=== PATIENT | female | born 1985 | race African-American/Black ===

== ENCOUNTER 2020-01-17 10:37 | Inpatient (IN) | payer MEDICARE, OTHER ==
[~2020-01-17] VITALS: Ht 162.6 cm; Wt 67.6 kg
[~2020-01-17 10:37] MED LIST: ACET-3161 PO; BENADRYL PO; FOLI0.4T2 PO; HYDR-4005 PO; HYDR-519 PO
[2020-01-17] MEDS ORDERED: ONDANSETRON HCL 4MG/2ML INJ IV STA ×2 (11:08→12:26)
[2020-01-17] MEDS ORDERED: MORPHINE SULFATE 4 MG/ML CPJ (NOT FOR IM USE) IV STA ×2 (11:08→12:26)
[2020-01-17] MEDS ORDERED: SODIUM CHLORIDE 0.9% 1,000 ML IV ONE (11:15)
[2020-01-17 12:00] LABS: HEMATOCRIT. 23.5 % (36.0-48.0); HEMOGLOBIN. 8.4 g/dL (12.0-16.0); MEAN CORPUSCULAR VOLUME 122.8 fL (81.0-99.0); MEAN PLATELET VOLUME 7.9 fl (7.4-10.4); PLATELET 338 x1000/uL (130-400); RED BLOOD CELL COUNT 1.92 mill/uL (4.2-5.4); RED CELL DISTRIBUTION WIDTH 22.6 % (11.6-14.6)
[2020-01-17 12:07] LABS: CHLORIDE 102 mEq/L (98-107)
[2020-01-17 12:18] LABS: HCG SCREEN NEGATIVE
[2020-01-17 12:27] LABS: NUCLEATED RED BLOOD CELLS 10 /100 WBC; PLATELET ESTIMATE NORMAL
[2020-01-17] MEDS ORDERED: VANCOMYCIN 1 G PREMIX 200 ML IV ONE (12:45)
[2020-01-17] MEDS ORDERED: HYDROMORPHONE HCL/PF 2MG/ML CPJ IV ONE (12:45)
[2020-01-17] MEDS ORDERED: PIPERACILLIN/TAZ 3.375G PREMIX 50 ML IV ONE (12:45)
[2020-01-17] MEDS ORDERED: CLONIDINE 0.1MG TABLET PO PRN (13:00)
[2020-01-17] MEDS ORDERED: ACETAMINOPHEN 325MG TABLET PO PRN (13:00)
[2020-01-17] MEDS ORDERED: ONDANSETRON HCL 4MG/2ML INJ IV PRN (13:00)
[2020-01-17] MEDS ORDERED: ENOXAPARIN 40MG/0.4ML SYR SUBCUT SCH ×2 (13:00→14:00)
[2020-01-17] MEDS ORDERED: DOCUSATE SODIUM 100MG CAPSULE PO PRN (13:00)
[2020-01-17] MEDS ORDERED: MAGNESIUM/ALUMINUM HYDROXIDE/SIMETHICONE 30ML UDC PO PRN (13:00)
[2020-01-17] MEDS ORDERED: NITROGLYCERIN 0.4MG TABLET SL SL PRN (13:00)
[2020-01-17] MEDS ORDERED: GUAIFENESIN 200MG/10ML SUGAR FREE UDC PO PRN (13:00)
[2020-01-17 13:05] LABS: TOTAL IRON BINDING CAPACITY 367 ug/dL (250-450)
[2020-01-17 13:06] LABS: HAPTOGLOBIN <31.0 mg/dL (30-200); LDL CHOLESTEROL 62 mg/dL (5-100)
[2020-01-17 13:07] LABS: CREATINE KINASE 64 IU/L (26-192)
[2020-01-17 13:08] LABS: HDL CHOLESTEROL 37 mg/dL (40-59)
[2020-01-17 13:10] LABS: CREATINE KINASE MB FRACTION < 1.0 ng/mL (0.5-3.6)
[2020-01-17] MEDS ORDERED: ENOXAPARIN 60MG/0.6ML SYR SUBCUT ONE (13:30)
[2020-01-17] MEDS ORDERED: CEFTRIAXONE 1 G PREMIX 50 ML IV SCH (14:00)
[2020-01-17] MEDS ORDERED: AZITHROMYCIN 500 MG in DEXT 5% WATER 250 ML IV SCH (14:00)
[2020-01-17] MEDS ORDERED: MVI, ADULT NO.1 10 ML, FOLIC ACID 1 MG, THIAMINE HCL 100 MG in SODIUM CHLORIDE 0.9% 1,0... IV NR ×4 (14:00)
[2020-01-17 14:11] LABS: FOLIC ACID (FOLATE) SERUM > 20.00 ng/mL (>5.38)
[2020-01-17 14:18] LABS: VITAMIN B12 SERUM 571 pg/mL (211-911)
[2020-01-17] MEDS ORDERED: DIPHENHYDRAMINE 50MG/ML VIAL IV ONE (15:00)
[2020-01-17] MEDS ORDERED: ALBUTEROL 6.7GM HFA INHALER ORI PRN (16:15)
[2020-01-17] MEDS ORDERED: DOCU-138 MT (16:20)
[2020-01-17] MEDS: KETOROLAC 15MG/ML VIAL IV PRN ×2 (16:32→22:44)
[2020-01-17 17:03] VITALS: BP 115/56
[2020-01-17] MEDS: CEFTRIAXONE 1,000 MG in DEXTROSE 5% WATER 50 ML IV SCH (18:39)
[2020-01-17] MEDS: MORPHINE SULFATE 2 MG/ML CPJ (NOT FOR IM USE) IV PRN (19:59)
[2020-01-17 20:00] VITALS: BP 133/94
[2020-01-17] MEDS: ASCORBIC ACID 500 MG TABLET PO SCH (20:58)
[2020-01-17] MEDS: FAMOTIDINE 20MG TABLET PO SCH (20:58)
[2020-01-17] MEDS: ACETAMINOPHEN 325MG TABLET PO PRN (20:59)
[2020-01-17] MEDS: ZOLPIDEM TARTRATE 5MG TABLET PO PRN (20:59)
[2020-01-17] MEDS: METOPROLOL TARTRATE 25MG TABLET PO SCH (21:06)
[2020-01-17] MEDS: TRAMADOL 50MG TABLET PO PRN (21:44)
[2020-01-17] MEDS: SODIUM CHLORIDE 0.9% 1,000 ML IV SCH (22:06)
[2020-01-17] MEDS: LORAZEPAM 0.5MG TABLET PO PRN (22:44)
[2020-01-18] VITALS: BP 118/72
[2020-01-18] MEDS: MORPHINE SULFATE 2 MG/ML CPJ (NOT FOR IM USE) IV PRN ×4 (00:01→21:00)
[2020-01-18] MEDS: LORAZEPAM 0.5MG TABLET PO PRN ×3 (02:55→22:46)
[2020-01-18] MEDS: ACETAMINOPHEN 325MG TABLET PO PRN (02:55)
[2020-01-18 04:00] VITALS: BP 114/72
[2020-01-18 06:03] LABS: CHLORIDE 105 mEq/L (98-107)
[2020-01-18 06:13] LABS: PHOSPHORUS 3.7 mg/dL (2.5-4.9)
[2020-01-18 06:48] LABS: BASOPHILS % 0.9 % (0.0-2.0); EOSINOPHILS % 0.9 % (0.0-5.0); HEMATOCRIT. 23.6 % (36.0-48.0); HEMOGLOBIN. 8.3 g/dL (12.0-16.0); LYMPHOCYTES % 27.9 % (20.0-50.0); MEAN CORPUSCULAR HEMOGLOBIN 44.2 pg (28.0-32.0); MEAN PLATELET VOLUME 7.9 fl (7.4-10.4); MONOCYTES % 8.3 % (2.0-8.0); PLATELET 330 x1000/uL (130-400); RED BLOOD CELL COUNT 1.89 mill/uL (4.2-5.4)
[2020-01-18 08:00] VITALS: BP 99/56
[2020-01-18] MEDS: METOPROLOL TARTRATE 25MG TABLET PO SCH ×2 (09:00→21:00)
[2020-01-18] MEDS: ENOXAPARIN 40MG/0.4ML SYR SUBCUT SCH ×2 (09:00→09:04)
[2020-01-18] MEDS: ASCORBIC ACID 500 MG TABLET PO SCH ×2 (09:03→20:40)
[2020-01-18] MEDS: FOLIC ACID 1MG TABLET PO SCH (09:03)
[2020-01-18] MEDS: FAMOTIDINE 20MG TABLET PO SCH ×2 (09:03→20:40)
[2020-01-18] MEDS: ZINC SULFATE 220 MG ( 50 ) CAPSULE PO SCH (09:03)
[2020-01-18] MEDS: SODIUM CHLORIDE 0.9% 1,000 ML IV SCH ×2 (09:14→20:40)
[2020-01-18] MEDS: KETOROLAC 15MG/ML VIAL IV PRN ×2 (09:14→18:37)
[2020-01-18] MEDS: TRAMADOL 50MG TABLET PO PRN ×2 (13:37→22:51)
[2020-01-18] MEDS: AZITHROMYCIN 500 MG in DEXT 5% WATER 250 ML IV SCH (13:38)
[2020-01-18] MEDS: CEFTRIAXONE 1,000 MG in DEXTROSE 5% WATER 50 ML IV SCH (17:38)
[2020-01-18 20:00] VITALS: BP 104/59
[2020-01-18] MEDS: ZOLPIDEM TARTRATE 5MG TABLET PO PRN (20:40)
[2020-01-19] VITALS (7 sets, daily range): BP systolic 98–139; BP diastolic 54–88
[2020-01-19] MEDS: KETOROLAC 15MG/ML VIAL IV PRN ×2 (00:50→12:26)
[2020-01-19] MEDS: MORPHINE SULFATE 2 MG/ML CPJ (NOT FOR IM USE) IV PRN (02:47)
[2020-01-19] MEDS: SODIUM CHLORIDE 0.9% 1,000 ML IV SCH ×5 (06:18→21:05)
[2020-01-19] MEDS: TRAMADOL 50MG TABLET PO PRN (06:19)
[2020-01-19 06:57] LABS: CHLORIDE 107 mEq/L (98-107)
[2020-01-19 07:28] LABS: PHOSPHORUS 3.1 mg/dL (2.5-4.9)
[2020-01-19 07:36] LABS: BASOPHILS % 2.6 % (0.0-2.0); EOSINOPHILS % 0.4 % (0.0-5.0); LYMPHOCYTES % 25.6 % (20.0-50.0); MEAN CORPUSCULAR HEMOGLOBIN 43.4 pg (28.0-32.0); MEAN CORPUSCULAR VOLUME 120.6 fL (81.0-99.0); MEAN PLATELET VOLUME 7.9 fl (7.4-10.4); MONOCYTES % 6.7 % (2.0-8.0); NEUTROPHILS % 64.7 % (40.0-76.0); PLATELET 274 x1000/uL (130-400); RED BLOOD CELL COUNT 1.54 mill/uL (4.2-5.4); RED CELL DISTRIBUTION WIDTH 18.9 % (11.6-14.6)
[2020-01-19 07:47] LABS: HEMATOCRIT. 18.6 % (36.0-48.0); HEMOGLOBIN. 6.7 g/dL (12.0-16.0)
[2020-01-19] MEDS: ENOXAPARIN 40MG/0.4ML SYR SUBCUT SCH (08:12)
[2020-01-19] MEDS: ASCORBIC ACID 500 MG TABLET PO SCH ×2 (08:49→20:48)
[2020-01-19] MEDS: FAMOTIDINE 20MG TABLET PO SCH ×2 (08:49→20:48)
[2020-01-19] MEDS: ZINC SULFATE 220 MG ( 50 ) CAPSULE PO SCH (08:49)
[2020-01-19] MEDS: METOPROLOL TARTRATE 25MG TABLET PO SCH ×2 (08:49→20:48)
[2020-01-19] MEDS: FOLIC ACID 1MG TABLET PO SCH (08:49)
[2020-01-19] MEDS: AZITHROMYCIN 500 MG in DEXT 5% WATER 250 ML IV SCH (15:02)
[2020-01-19 15:40] LABS: BG BASE EXCESS -7.6 mmol/L (-2.0-2.0); BG CARBOXYHEMOGLOBIN 0.9 % (0.5-1.5); BG DEOXYHEMOGLOBIN 67.6 % (0.0-5.0); BG HCO3 ACT 19.5 mmol/L (22.0-26.0); BG METHEMOGLOBIN 0.7 % (0.0-1.5); BG OXYGEN SATURATION 31.3 % (92.0-98.5); BG OXYHEMOGLOBIN 30.8 % (94.0-97.0); BG PCO2 48.1 mmHg (35.0-45.0); BG PH 7.225 (7.350-7.450); BG PO2 < 30.3 mmHg (75.0-100.0); BG SAMPLE SITE CL; BG TOTAL HEMOGLOBIN 6.5 g/dL (12.0-18.0); BG VENT MODE ROOM AIR
[2020-01-19] MEDS ORDERED: HYDROMORPHONE HCL/PF 2MG/ML CPJ IV PRN (15:45)
[2020-01-19 16:00] LABS: BG DEOXYHEMOGLOBIN 17.8 % (0.0-5.0); BG HCO3 ACT 21.3 mmol/L (22.0-26.0); BG METHEMOGLOBIN 0.7 % (0.0-1.5); BG OXYGEN SATURATION 81.9 % (92.0-98.5); BG OXYHEMOGLOBIN 80.5 % (94.0-97.0); BG PCO2 34.1 mmHg (35.0-45.0); BG PH 7.413 (7.350-7.450); BG PO2 63.3 mmHg (75.0-100.0); BG SAMPLE SITE RIGHT RADIAL; BG TOTAL HEMOGLOBIN 6.7 g/dL (12.0-18.0); BG VENT MODE ROOM AIR
[2020-01-19] MEDS ORDERED: IOHEXOL-350 100 ML BOTTLE ONE (16:11)
[2020-01-19] MEDS ORDERED: DIPHENHYDRAMINE 50MG/ML VIAL IV PRN (16:30)
[2020-01-19] MEDS ORDERED: HYDROCODONE/ACETAMINOPHEN 5/325MG TABLET PO PRN (16:30)
[2020-01-19] MEDS: CEFTRIAXONE 1,000 MG in DEXTROSE 5% WATER 50 ML IV SCH (18:50)
[2020-01-19] MEDS ORDERED: ALBUTEROL (0.083%) 2.5MG/3ML NEB HHN PRN (19:30)
[2020-01-20] VITALS (10 sets, daily range): BP systolic 97–115; BP diastolic 51–73
[2020-01-20] MEDS: ACETAMINOPHEN 325MG TABLET PO PRN ×2 (02:05→02:19)
[2020-01-20 06:46] LABS: CHLORIDE 100 mEq/L (98-107)
[2020-01-20 07:52] LABS: BASOPHILS % 0.6 % (0.0-2.0); EOSINOPHILS % 0.3 % (0.0-5.0); HEMATOCRIT. 21.8 % (36.0-48.0); HEMOGLOBIN. 7.9 g/dL (12.0-16.0); LYMPHOCYTES % 32.6 % (20.0-50.0); MEAN CORPUSCULAR HEMOGLOBIN 39.1 pg (28.0-32.0); MEAN CORPUSCULAR VOLUME 107.5 fL (81.0-99.0); MEAN PLATELET VOLUME 7.8 fl (7.4-10.4); MONOCYTES % 5.3 % (2.0-8.0); NEUTROPHILS % 61.2 % (40.0-76.0); PLATELET 291 x1000/uL (130-400); RED BLOOD CELL COUNT 2.02 mill/uL (4.2-5.4); RED CELL DISTRIBUTION WIDTH 30.1 % (11.6-14.6)
[2020-01-20] MEDS: ENOXAPARIN 40MG/0.4ML SYR SUBCUT SCH (08:19)
[2020-01-20] MEDS: METOPROLOL TARTRATE 25MG TABLET PO SCH (08:22)
[2020-01-20] MEDS: FAMOTIDINE 20MG TABLET PO SCH (08:23)
[2020-01-20] MEDS: ASCORBIC ACID 500 MG TABLET PO SCH (08:23)
[2020-01-20] MEDS: FOLIC ACID 1MG TABLET PO SCH (08:23)
[2020-01-20] MEDS: ZINC SULFATE 220 MG ( 50 ) CAPSULE PO SCH (08:23)
[2020-01-20] MEDS ORDERED: AZITHROMYCIN 500 MG TABLET PO SCH (09:00)
[2020-01-23 13:06] LABS: HGB A2 3.3 % (1.8-3.2); HGB S 81.7 % (0.0)
== END 2020-01-20 16:30 | disposition home or self-care (01) | DRG 811 ==
LOC: ER 10:37 → 7EST 12:41 → ENRESERV 13:42 → 8WST 01-18 18:05
PROVIDERS: ADMIT Internal Medicine; ATTEND Internal Medicine
PROC: 30233N1 Transfusion of Nonautologous Red Blood Cells into Peripheral Vein, Percutaneous Approach (ICD-10-PCS; principal; 2020-01-17)
DX: D57.00 Hb-SS disease with crisis, unspecified (principal); J96.01 Acute respiratory failure with hypoxia; J18.9 Pneumonia, unspecified organism; E87.1 Hypo-osmolality and hyponatremia; E44.0 Moderate protein-calorie malnutrition; E83.51 Hypocalcemia; F12.10 Cannabis abuse, uncomplicated; Z20.828 Contact with and (suspected) exposure to other viral communicable diseases; E78.5 Hyperlipidemia, unspecified; F17.210 Nicotine dependence, cigarettes, uncomplicated; J45.909 Unspecified asthma, uncomplicated; D86.9 Sarcoidosis, unspecified; K75.9 Inflammatory liver disease, unspecified; Z76.5 Malingerer [conscious simulation]; Z68.25 Body mass index [BMI] 25.0-25.9, adult; Z79.891 Long term (current) use of opiate analgesic; Z79.899 Other long term (current) drug therapy; Z99.81 Dependence on supplemental oxygen; R74.01 Elevation of levels of liver transaminase levels
CPT/HCPCS: 36415; 36600; 71045; 71275; 80053; 80061; 80320; 82375; 82550; 82553; 82607; 82746; 82805; 83010; 83021; 83036; 83540; 83550; 83605; 83615; 83735; 83880; 84100; 84145; 84484; 84703; 85025; 85044; 85379; 85660; 86850; 86900; 86920; 87635; 93005; 93970; 99285; J0456; J0696; J1170; J1200; J1650; J1885; J2270; J2405; J2543; J3370; J3411; J3490; J7030; J7060; P9016; Q9967; G0480